=== PATIENT | male | born 1955 | race Caucasian/White ===

== ENCOUNTER 2019-02-27 21:41 | Emergency (ER) | payer SELFPAY ==
[~2019-02-27] VITALS: Ht 170.2 cm; Wt 61.7 kg
--- NOTE | 2019-02-27 23:02 | NUR ---
Patient discharged to home in stable conditon. Written and verbal after care instructions given. Patient verbalizes understanding of instructions.
== END 2019-02-27 23:09 | disposition home or self-care (01) ==
LOC: ER 21:43
DX: K40.90 Unilateral inguinal hernia, without obstruction or gangrene, not specified as recurrent (principal); M25.561 Pain in right knee; R42 Dizziness and giddiness; R53.1 Weakness
CPT/HCPCS: A4663